=== PATIENT | male | born 1950 | race Caucasian/White ===

== ENCOUNTER 2020-05-20 08:57 | Day surgery (SDC) | payer BC ==
[2020-05-19 14:34] VITALS: BMI 31.9
[2020-05-20] MEDS ORDERED: MIDAZOLAM HCL 2 MG/2 ML SINGLE DOSE VIAL ONE (10:38)
[2020-05-20] MEDS ORDERED: LIDOCAINE HCL/PF 2% SDV 5ML VIAL ONE ×2 (10:38→10:54)
[2020-05-20] MEDS ORDERED: PROPOFOL 20 ML ONE (10:38)
[2020-05-20] MEDS ORDERED: DEXAMETHASONE SOD PHOSPHATE 4 MG/1 ML VIAL ONE (10:39)
[2020-05-20] MEDS ORDERED: ONDANSETRON 4 MG/2 ML VIAL ONE (10:39)
[2020-05-20] MEDS ORDERED: KETOROLAC TROMETHAMINE 30 MG/1 ML VIAL ONE (10:39)
[2020-05-20] MEDS ORDERED: LIDOCAINE HCL 2% (50ML VIAL) INF ONE (11:00)
[2020-05-20 11:46] VITALS: TEMP 98
[2020-05-20 12:09] VITALS: BP 136/70; PULSE 63
== END 2020-05-20 12:14 | disposition home or self-care (01) ==
LOC: FASU 08:57
PROVIDERS: ATTEND Orthopaedic Surgery Hand Surgery
PROC: 0LM70ZZ Reattachment of Right Hand Tendon, Open Approach (ICD-10-PCS; principal; 2020-05-20 11:08)
DX: M20.011 Mallet finger of right finger(s) (principal)
CPT/HCPCS: 82962